=== PATIENT | female | born 1945 | race Caucasian/White ===

== ENCOUNTER 2016-12-29 12:29 | Outpatient (CLI) | payer OTHER, MEDICARE | END 2016-12-29 12:30 | LOC: CARD 12:29 | PROVIDERS: ATTEND Internal Medicine Cardiovascular Disease | DX: I25.10 Atherosclerotic heart disease of native coronary artery without angina pectoris (principal) | CPT/HCPCS: 99214 ==

== ENCOUNTER 2018-01-26 11:19 | Outpatient (CLI) | payer OTHER ==
[2018-01-26 12:14] LABS: BASOPHILS % 0.6 (0.0-1.5); EOSINOPHILS % 0.6 % (0.0-6.8); MEAN CORPUSCULAR HEMOGLOBIN 31.2 pg (28.0-34.0); NEUTROPHILS # 5.5 # k/uL (1.4-7.7)
[2018-01-26 12:27] LABS: eGFR (African) > 60; eGFR (Non-African) > 60
--- NOTE | 2018-01-26 18:04 | Diagnostic Imaging Report ---
CARLA RUTLEDGE [facility] [address] [facility] [address] [place], [place]. [address] Report Submission Date: January 26, 2018 12:26:03 PM CDT Patient Study Name: JAX DANG Date: January 26, 2018 11:35:17 AM CDT Modality Type: DX Gender: F Description: CHEST : 41 Institution: [facility] Physician: CARLA RUTLEDGE Examination: PA and lateral chest. History: Evaluate lung haddad. PT C/O CHEST PAIN X 2 WEEKS. HX OF STENTS. PT STATES THAT SHE IS A SMOKER. (Hx) Comparison exam: None provided. Findings: PA lateral chest demonstrate a normal cardiac and mediastinal silhouette. Vascular calcifications involving the aortic arch. Left mid to upper lung parenchymal density. No blunting of the costophrenic margins. Osseous structures are appropriate for age. Impression: Left mid to upper lung parenchymal density - suspicious for lesion/ mass. Recommend CT chest to further evaluate. Electronically signed on January 26, 2018 12:26:03 PM CDT by: Wesley OSBORN
== END 2018-01-26 11:20 ==
LOC: LAB 11:19
PROVIDERS: ATTEND Family Medicine
DX: R63.4 Abnormal weight loss (principal); D50.9 Iron deficiency anemia, unspecified; R07.9 Chest pain, unspecified
CPT/HCPCS: 36415; 71046; 80053; 84484; 85025

== ENCOUNTER 2018-01-27 11:00 | Outpatient (CLI) | payer OTHER ==
--- NOTE | 2018-01-27 18:32 | Diagnostic Imaging Report ---
CARLA RUTLEDGE [facility] [address] [facility] [address] [place], [place]. [address] Report Submission Date: January 27, 2018 12:40:13 PM CDT Patient Study Name: JAX DANG Date: January 27, 2018 11:28:15 AM CDT Modality Type: CT\SR Gender: F Description: CT CHEST W/ CONTRAST : 41 Institution: [facility] Physician: CARLA RUTLEDGE Examination: CT chest History: CT CHEST W/ CONTRAST, LUNG MASS SEEN ON CXR FROM 01/26/18. CHEST DISCOMFORT X2 WEEKS. PT STATES HX OF 2 HEART ATTACKS WITH STENTS PLACED. SMOKER (Hx) Comparison exams: Plain film chest dated January 2018 Technique: CT chest with contrast protocol Findings: Within the mid aspect of the left upper lung a lobulated/spiculated lesion measuring 2.3 x 1.0 cm. Smaller nodule within the right middle lung measuring 7.3 mm. Diffuse parenchymal emphysematous changes and posterior parenchymal scarring. No posterior pleural effusion. Significant angelina confluence involving the left hilum and prevascular region. Mild angelina fullness involving the right hilum. Thoracic aorta demonstrates peripheral atherosclerotic disease and mural thickening. Cardiac silhouette is not enlarged. No pericardial effusion. Degenerative spurring of the thoracic vertebral bodies. No obvious lytic or blastic foci. Lower neck structures without gross abnormality. Liver demonstrates diffuse low attenuation. No other gross upper abdominal organ abnormality. Impression: Large left upper lung and smaller right middle lung pulmonary nodules. Associated significant mediastinal/hilar adenopathy. Findings consistent with pulmonary carcinoma. Biopsy recommended for cytologic evaluation. Oncology consultation recommended. Fatty liver. Electronically signed on January 27, 2018 12:40:13 PM CDT by: Wesley OSBORN
== END 2018-01-27 11:02 ==
LOC: RAD 11:00
PROVIDERS: ATTEND Family Medicine
DX: R91.8 Other nonspecific abnormal finding of lung field (principal)
CPT/HCPCS: 71260; Q9967

== ENCOUNTER 2018-04-26 15:23 | Outpatient (CLI) | payer OTHER | END 2018-04-26 15:24 | LOC: CARD 15:23 | PROVIDERS: ATTEND Internal Medicine Cardiovascular Disease | DX: I25.10 Atherosclerotic heart disease of native coronary artery without angina pectoris (principal); I48.91 Unspecified atrial fibrillation; R00.0 Tachycardia, unspecified; I26.99 Other pulmonary embolism without acute cor pulmonale; I34.0 Nonrheumatic mitral (valve) insufficiency; I35.1 Nonrheumatic aortic (valve) insufficiency | CPT/HCPCS: G0463 ==

== ENCOUNTER 2018-05-07 11:50 | Emergency (ER) | payer OTHER ==
[2018-05-07] MEDS: IPRATROPIUM/ALBUTEROL SULFATE 3 ML AMPUL.NEB NEB ONE ×2 (11:53→13:02)
--- NOTE | 2018-05-07 11:53 | ED Physician Documentation ---
General Adult - HISTORIAN Historian: patient - HPI Stated Complaint: shortness of breath Chief Complaint: Dyspnea Onset: days ago (2) Timing: still present Severity: moderate Further Comments: yes (She states she has lung cancer and had her last treatment Wednesday . She states this am she was not able to recover her shortness of breath with her normal treatments and oxygen. No fever.) Last known Well Code/Unknown Code: Unknown - ROS CONST: no problems CVS/RESP: shortness of breath. denies: chest pain, cough GI/: denies: vomiting, nausea - PAST HX Past History: COPD, other (lung ca) Immunizations: referred to PCP Allergies/Adverse Reactions: Allergies Allergy/AdvReac Type Severity Reaction Status Date / Time No Known Drug Allergies Allergy Verified 05/07/18 13:20 Home Medications: Ambulatory Orders Medication Instructions Recorded Mirtazapine 15 mg PO DAILY 05/07/18 - SOCIAL HX Smoking History: cigarettes - FAMILY HX Family History: No - REVIEWED ASSESSMENTS Nursing Assessment Reviewed: Yes Vitals Reviewed: Yes Progress - Progress Progress: 1235: she states that she is not feeling much better. She complains of shortness of breath . Her had increased to 10L due to her shortness of air. (level did not indicate a need to increase oxygen) He states he wants it higher for her comfort. Lab is still in process although WBC is high and she has lung cancer. She states that if she is admitted she would like to be admitted here DG 1330: Discussed with pt and spouse chest xray findings. They had questions on what this means. She is requesting to be admitted here and not go to [place] for ease in transportation. Dr Aquino is agreeable to admission. Discussed Code status she states "everyone asks and I keep telling them I do not want CPR" Discussed importance of this in writing with Advanced Directive DG 1335: Advance Directive packet given. DG 1350: Spouse says she would rather go home DG ED Results Lab/Radiology - Radiology Radiology Impressions: PA and lateral chest CLINICAL HISTORY: Shortness of breath. FINDINGS: Examination of the chest in PA and lateral views with comparison to examination of 01/26/2018 demonstrates left effusion blunting the costophrenic angle. There is increasing left hilar adenopathy increasing size left upper lobe nodule. Right lung remains clear. Cardiac silhouette is stable and the aorta is atherosclerotic. IMPRESSION: Increasing left effusion, increasing mediastinal adenopathy and increased size of the left lung nodule. Electronically signed on May 07, 2018 1:04:17 PM CDT by: Bethel Huntley General Adult Physical Exam - PHYSICAL EXAM GENERAL APPEARANCE: moderate distress EENT: eye inspection normal NECK: normal inspection RESPIRATORY: rales, rhonchi CVS: reg rate & rhythm, heart sounds normal, equal pulses, no murmur ABDOMEN: soft, no distension SKIN: warm/dry, normal color EXTREMITIES: non-tender, normal range of motion, no edema NEURO: oriented X3, CN's nml as tested, motor nml, sensation nml, mood/affect nml Discharge Clincal Impression: Lung cancer Qualifiers: Laterality: left Lung location: upper lobe of lung Qualified Code(s): C34.12 - Malignant neoplasm of upper lobe, left bronchus or lung Referrals: Yani Casas MD [Primary Care Provider] - 2 Days Comments: Dr Aquino will accept as admitting DG Pt refused to stay for admission DG 1. Continue home meds 2. Ativan 0.5 mg take 1 by mouth every 12 hours as needed for anxiety 3. Follow up with PCP in 2-4 days 4. Return to ER for any concerns Condition: Fair Disposition: ADMITTED INPATIENT Decision to Admit: NO (pt refused admission) Date of Decison to Admit: 05/07/18 Decision Time: 13:25
[2018-05-07] MEDS: methylPREDNISolone SOD SUCC 125 MG/2 ML VIAL IVP ONE (12:20)
[2018-05-07 12:21] LABS: BASOPHILS % 0.5 (0.0-1.5); MEAN CORPUSCULAR HEMOGLOBIN 26.8 pg (28.0-34.0); MEAN CORPUSCULAR VOLUME 94.1 fl (80.0-100.0); MONOCYTES % 4.2 % (0.0-11.0); NEUTROPHILS # 12.5 # k/uL (1.4-7.7)
[2018-05-07 14:30] VITALS: BP 105/63
--- NOTE | 2018-05-07 15:16 | Diagnostic Imaging Report ---
ASHOK BUENO [facility] [address] [facility] [address] Report Submission Date: May 07, 2018 1:04:17 PM CDT Patient Study Name: JAX DANG Date: May 07, 2018 12:39:45 PM CDT Modality Type: DX Gender: F Description: CHEST : 41 Institution: [facility] Physician: ASHOK BUENO PA and lateral chest CLINICAL HISTORY: Shortness of breath. FINDINGS: Examination of the chest in PA and lateral views with comparison to examination of 01/26/2018 demonstrates left effusion blunting the costophrenic angle. There is increasing left hilar adenopathy increasing size left upper lobe nodule. Right lung remains clear. Cardiac silhouette is stable and the aorta is atherosclerotic. IMPRESSION: Increasing left effusion, increasing mediastinal adenopathy and increased size of the left lung nodule. Electronically signed on May 07, 2018 1:04:17 PM CDT by: Bethel OSBORN
[2018-05-07 15:21] LABS: TOTAL PROTEIN 6.6 g/dL (6.0-8.5)
== END 2018-05-07 14:05 | disposition home or self-care (01) ==
LOC: ED 11:50
DX: C34.12 Malignant neoplasm of upper lobe, left bronchus or lung (principal)
CPT/HCPCS: 71046; 80053; 83880; 85025; 85610; J2930; 94640; 96374; S1016